=== PATIENT | male | born 1975 | race Caucasian/White ===

== ENCOUNTER 2020-07-17 13:25 | Observation (INO) | payer SELFPAY ==
[~2020-07-17] VITALS: Ht 188 cm; Wt 65.1 kg
[2020-07-17] VITALS (12 sets, daily range): BP systolic 88–135; BP diastolic 60–70
--- NOTE | 2020-07-17 13:25 | NUR ---
PT ARRIVED BY EMS STABLE
--- NOTE | 2020-07-17 14:03 | NUR ---
IV KEPPRA INFUSING. SITE HEALTHY. VSS. PT A&OX3. REPORTS NOT TAKING HIS SEIZURE MEDS IN THREE WEEKS HIS RX RAN OUT.
[2020-07-17 14:06] LABS: HEMATOCRIT 38.5 % (39.0-50.0); HEMOGLOBIN 12.9 g/dl (14.0-18.0); IMMATURE GRANULOCYTES 0.3 % (0.0-5.0); MEAN CELL VOLUME 96.7 fL CALC (80.0-100.0); MEAN CORPUSCULAR HGB 32.4 pG CALC (26.0-32.0); MEAN CORPUSCULAR HGB CONC 33.5 g/dL CAL (32.0-36.0); NEUT# 10.09 thou/uL (1.82-7.42); RED BLOOD COUNT 3.98 mill/uL (4.70-6.10); RED CELL DISTRI WIDTH 11.9 % (11.5-15.5)
[2020-07-17 14:11] LABS: URINE BILIRUBIN - DIPSTICK NEGATIVE (NEGATIVE); URINE BLOOD DIPSTICK SMALL (NEGATIVE); URINE COLOR YELLOW; URINE GLUCOSE - DIPSTICK NEGATIVE (NEGATIVE); URINE KETONE 15 mg/dL (NEGATIVE); URINE LEUK ESTERASE NEGATIVE (NEGATIVE); URINE NITRITE - DIPSTICK NEGATIVE (Negative); URINE PROTEIN - DIPSTICK NEGATIVE (NEG-TRACE); URINE SPECIFIC GRAVITY >=1.030; URINE UROBILINOGEN - DIPSTICK 0.2 E.U./dL (0.2)
[2020-07-17 14:21] LABS: ALBUMIN 4.2 g/dL (3.2-5.0); ALKALINE PHOSPHATASE 37 u/l (38-126); ANION GAP 12 (6-22 (CALC)); BILIRUBIN, TOTAL 0.9 mg/dL (0.0-1.4); BUN 18 mg/dL (9-20); BUN/CREATININE RATIO 20 (12-20 (CALC)); CARBON DIOXIDE 23 mmol/l (22-30); CHLORIDE 103 mmol/l (95-108); CREATININE 0.9 mg/dL (0.7-1.3); GFR > 60 ML/MIN (>=60 (CALC)); GFR FOR AFR.AMER. > 60 ML/MIN (>=60 (CALC)); POTASSIUM 4.1 mmol/l (3.5-5.1); SGOT/AST 27 u/l (17-59); SODIUM 134 mmol/l (137-146)
[2020-07-17 14:26] LABS: URINE WBC 0-2 WBC/hpf (0-5)
--- NOTE | 2020-07-17 15:20 | NUR ---
PT W/NO SEIZURE ACTIVITY SINCE ARRIVAL. IV KEPPRA COMPLETED. IV FLUIDS INFUSING. SITE HEALTHY. VSS.
--- NOTE | 2020-07-17 16:19 | NUR ---
REPORT PROVIDED TO NURSE ALMANZAR IN ICU. ADVISED OF ALL EVENTS, ATTACHMENTS AND MEDS. VSS. IV SITE HEALTHY. 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
--- NOTE | 2020-07-17 16:30 | NUR ---
PT ARRIVED FROM ER VIA STRETCHER WITH IV SITE IN PLACE.
--- NOTE | 2020-07-17 16:50 | NUR ---
ASSESSMENT IS COMPLETED: IV SITE IS FREE FROM REDNESS OR EDEMA. HR IS REG,PULSES ARE STRONG X4, A BD IS SOFT WITH ACTIVE BS. BREATH SOUNDS ARE CLEAR BILATERALLY, HRT MONITOR IN PLACE. PT ABLE TO USE THE URINAL.AND BED RAILS ARE PADDED FOR SAFETY. PT ABLE TO AMBULATE FROM THE STRETCHER TO THE BED.,
--- NOTE | 2020-07-17 18:05 | NUR ---
PT HAS RECEIVED A FEW CALLS FROM HIS . NO DISTRESS NOTED.
--- NOTE | 2020-07-17 18:26 | NUR ---
PT INQUIRED ABOUT HIS CELL PHONE. CALLED ER AND INQUIRED WILL CALLBACK.
--- NOTE | 2020-07-17 20:00 | NUR ---
RECEIVED REPORT FROM NURSE ALMANZAR PATIENT RESTING IN BED AWAKE, ALERT ORIENTED X 4, AMBULATORY, ON SEIZURE PRECAUTION, BED PADDED, WITH EMS SITE ON LAC G20 PATENR ONGOING NS @ 100CC/HR INFUSING WELL, ON BANKING CONSULTANT SR 60, BREATHING EVEN UNLABORED, CLEAR LUNG SOUNDS, ACTIVE BOWEL SOUNDS ON ALL FOUR QUADRANTS, URINE CLEAR YELLOW, CONTINENT USES URINAL. CALL LIGHT AT REACH.
--- NOTE | 2020-07-17 22:00 | NUR ---
PATIENT AWAKE TALKING ON THE PHONE, DENIES PAIN OR DISCOMFORTS CALL LIGHT AT REACH.
--- NOTE | 2020-07-17 23:09 | NUR ---
CALLED ED ABOUT RES CELLPHONE, STAFF HAS NOT SEEN PATIENT CELLPHONE YET.WILL CALL BACK.
[2020-07-18] VITALS (9 sets, daily range): BP systolic 94–116; BP diastolic 49–71
--- NOTE | 2020-07-18 00:29 | NUR ---
PATIENT APPEARS TO BE SLEEPING WITH EYES CLOSED, BREATHING EVEN UNLABORED, NO DISCOMFORTS NOTED AT THIS TIME CALL LIGHT WITHIN REACH.
--- NOTE | 2020-07-18 02:13 | NUR ---
PATIENT ASLEEP AT THIS TIME, WITH EYES CLOSED, BREATHING UNLABORED REMAINS ON SEIZURE PRECAUTION CALL LIGT AT REACH.
--- NOTE | 2020-07-18 04:11 | NUR ---
PATIENT RESTING IN BED WITH EYES CLOSED, EVEN UNLABORED RESPIRATIONS CALL LIGHT AT REACH.
--- NOTE | 2020-07-18 06:00 | NUR ---
PATIENT FRESTING IN BED EYES CLOSED, BREATHING EVEN AND UNLABORED, CALL LIGHT AT REACH.
--- NOTE | 2020-07-18 07:45 | NUR ---
ASSESSMENT IS COMPLETED: IV SITE IS FREE FROM RENDESS OR EDEMA. HR IS REG,PULSES ARE STRONG X4, ABD IS SOFT WITH ACTIVE BS. BREATH SOUNDS ARE CLEAR. NO DISTRESS NOTED. THROUGOUT THE NIGHT.
--- NOTE | 2020-07-18 10:00 | NUR ---
PT HAS BEEN RESTING IN BED WITH NO DISTRESS NOTED. IV SITE IS FREE FROM REDNESS OR EMILY.A
--- NOTE | 2020-07-18 10:46 | NUR ---
Patient is screened fro rehab intervention and no needs are identified at this time
[2020-07-18] MEDS ORDERED: DEPAKOTE ER250 MG PO (10:57)
[2020-07-18] MEDS ORDERED: KEPPRA500 M2 PO (10:58)
--- NOTE | 2020-07-18 12:00 | NUR ---
PTIS RELAXING IN BED WITH NO DISTRESS NOTED. IV SITE IS FREE FROM REDNESS OR EDEMA.
--- NOTE | 2020-07-18 14:00 | NUR ---
PT IS RESTING IN BED WITH NO DISTRESS NOTED.
--- NOTE | 2020-07-18 14:17 | NUR ---
FAMILY CALLED AND INQUIRED WHEN PT COULD BE DISCHARGED SO HE CAN GO TO WORK.
--- NOTE | 2020-07-18 16:00 | NUR ---
IV SITE AND DISCHARGE PLACED IN THE COMPUTER. INFORMED PT AND WILL CALL HIS SPOUSE.
--- NOTE | 2020-07-18 16:42 | NUR ---
IV site discontinued, cath intact. No edema , no redness, voices no discomfort.
--- NOTE | 2020-07-18 17:00 | NUR ---
IV SITE DISCONTINUED CATHETER INTACT. NO REDNESS OR EDEMA. DISCHARGE INSTRUCTIONS GIVEN AND VERBALIZED UNDERSTANDING. Discharge instructions given. Patient verbalizes understanding of same. Discharged in stable condition via Wheelchair to Home with family. All belongings sent with pt.
== END 2020-07-18 17:15 | disposition home or self-care (01) | DRG 101 ==
LOC: ED 13:25 → ED-I 15:18 → ED 15:27 → ICU 15:28
PROVIDERS: Student in an Organized Health Care Education/Training Program; ADMIT Internal Medicine; ATTEND Internal Medicine
DX: G40.409 Other generalized epilepsy and epileptic syndromes, not intractable, without status epilepticus (principal); S00.81XA Abrasion of other part of head, initial encounter; T42.6X6A Underdosing of other antiepileptic and sedative-hypnotic drugs, initial encounter; R79.89 Other specified abnormal findings of blood chemistry; W19.XXXA Unspecified fall, initial encounter; Z91.128 Patient's intentional underdosing of medication regimen for other reason; Z87.891 Personal history of nicotine dependence; Z20.822 Contact with and (suspected) exposure to COVID-19
CPT/HCPCS: J1953